=== PATIENT | female | born 1995 | race Two or more races ===

== ENCOUNTER 2017-09-03 11:25 | Emergency (ER) | payer OTHER | END 2017-09-03 13:00 | disposition home or self-care (01) | LOC: E/R 11:25 | DX: R30.0 Dysuria (principal) | CPT/HCPCS: 99284; Z7502 ==

== ENCOUNTER 2018-03-20 20:50 | Emergency (ER) | payer OTHER | END 2018-03-21 02:32 | disposition home or self-care (01) | LOC: FTE 03-21 02:32 | DX: S80.12XA Contusion of left lower leg, initial encounter (principal); S13.4XXA Sprain of ligaments of cervical spine, initial encounter; R40.2412 Glasgow coma scale score 13-15, at arrival to emergency department; V49.50XA Passenger injured in collision with unspecified motor vehicles in traffic accident, initial encounter | CPT/HCPCS: 73590; 99283-25 ==